=== PATIENT | female | born 1995 | race Caucasian/White ===

== ENCOUNTER → 2025-05-24 17:19 | Outpatient (CLI) | payer SELFPAY ==
[2025-05-24 19:02] LABS: Influenza A - CEPHEID Flu A NEGATIVE (NEGATIVE); Influenza B - CEPHEID Flu B NEGATIVE (NEGATIVE)
[2025-05-24 19:11] LABS: COVID-19 CEPHEID 4-PLEX PCR Negative (Negative)
== END ==
PROVIDERS: Visit Provider Chiropractor
DX: J02.9 Acute pharyngitis, unspecified (principal)
CPT/HCPCS: 87070; 87637